=== PATIENT | female | born 1965 | race American Indian/Alaskan Native ===

== ENCOUNTER 2018-03-19 11:03 | Outpatient (CLI) | payer OTHER ==
--- NOTE | 2018-03-19 16:05 | Mammography Report ---
BILATERAL DIGITAL SCREENING MAMMOGRAM with CAD: CLINICAL: Routine screening. COMPARISON:None available. However, a prior mammogram was apparently done at [facility]. FINDINGS: The breasts are heterogeneously dense, which may obscure small masses. A left asymmetry on the CC view requires comparison with a prior mammogram or additional imaging.No architectural distortion or suspicious calcifications.The right breast is negative. IMPRESSION: Left asymmetry requiring further evaluation. BI-RADS CATEGORY: 0 -- Additional Evaluation Required RECOMMENDATION: Comparison with a previous mammogram. We will attempt to obtain a prior mammogram for comparison. If we do not obtain a prior mammogram within 30 days, a revised report will be issued recommending a recall for additional imaging. Please be advised that the patient should not schedule an appointment for return until adequate time (at least 2 weeks) has passed for us to obtain the prior mammogram. ACR BI-RADS MAMMOGRAPHIC CODES: 0 = Needs additional imaging evaluation; 1 = Negative; 2 = Benign; 3 = Probably benign; 4 = Suspicious; 5 = Malignant; 6 = Known biopsy-proven malignancy COMMENT: 1. Dense breast tissue, i.e., adenosis, fibrocystic changes, etc., may obscure an underlying neoplasm. 2. Approximately 10% of cancers are not detected with mammography. 3. A negative mammography report should not delay biopsy if a clinically suspicious mass is present. COMMENT: Patient follow-up letters are generated via our [employer] application.
== END 2018-03-19 11:04 | disposition home or self-care (01) ==
LOC: SPVWC 11:03
PROVIDERS: ATTEND Nurse Practitioner Gerontology
DX: Z12.31 Encounter for screening mammogram for malignant neoplasm of breast (principal)
CPT/HCPCS: 77067

== ENCOUNTER 2019-06-29 08:35 | Outpatient (CLI) | payer OTHER ==
--- NOTE | 2019-06-30 15:41 | Mammography Report ---
DIGITAL SCREENING MAMMOGRAM WITH CAD, 06/29/2019 INDICATION: Routine screening mammography. TECHNIQUE: Digital bilateral 2D mammography was obtained in the craniocaudal and mediolateral obliq ue projections. This examination was interpreted with the benefit of Computer-Aided Detection analysi s. COMPARISON: 03/19/2018 FINDINGS: Breast Density: The breasts are heterogeneously dense, which may obscure small masses. Bilateral mammographic asymmetries require additional imaging. No architectural distortion or suspici ous calcifications. IMPRESSION: Bilateral asymmetries requiring additional imaging. Recommend recall for bilateral spot c ompression views and bilateral breast ultrasound if needed. Follow up recommendation: Special View: Spot Category 0: Incomplete. Needs additional imaging evaluation and/or prior mammograms for comparison. A "normal" or negative report should not discourage follow up or biopsy of a clinically significant f inding. A written summary of these findings will be mailed to the patient. The patient will be entered into a mammography reporting system which will generate a reminder letter for the patient's next appointmen t at the appropriate interval. The [employer] recommends yearly mammograms starting at age 40 and continuing as l mohsen as a woman is in good health. Breast MRI is recommended for women with an approximate 20-25% or greater lifetime risk of breast cancer, including women with a strong family history of breast or ova fany cancer or who have been treated for Hodgkin's disease. Signer Name: Jaycob Luong MD Signed: 06/30/2019 3:37 PM Workstation Name: [id number]
== END 2019-06-29 08:36 | disposition home or self-care (01) ==
LOC: SPVWC 08:35
PROVIDERS: ATTEND Nurse Practitioner Gerontology
DX: Z12.31 Encounter for screening mammogram for malignant neoplasm of breast (principal)
CPT/HCPCS: 77067

== ENCOUNTER 2020-05-16 14:16 | Outpatient (CLI) | payer OTHER ==
--- NOTE | 2020-05-16 15:09 | Mammography Report ---
DIGITAL SCREENING MAMMOGRAM WITH CAD, 05/16/2020 INDICATION: Routine screening mammography. ABN MAMMO TECHNIQUE: Digital bilateral 2D mammography was obtained in the craniocaudal and mediolateral obliq ue projections. This examination was interpreted with the benefit of Computer-Aided Detection analysi s. COMPARISON: 06/29/2019, 03/19/2018 FINDINGS: Breast Density: The breasts are heterogeneously dense, which may obscure small masses. There is no evidence of dominant mass, suspicious calcifications or architectural distortion in eithe r breast. IMPRESSION: No evidence of malignancy Follow up recommendation: Routine yearly BI-RADS Category 1: Negative. A "normal" or negative report should not discourage follow up or biopsy of a clinically significant f inding. A written summary of these findings will be mailed to the patient. The patient will be entered into a mammography reporting system which will generate a reminder letter for the patient's next appointmen t at the appropriate interval. The [employer] recommends yearly mammograms starting at age 40 and continuing as l mohsen as a woman is in good health. Breast MRI is recommended for women with an approximate 20-25% or greater lifetime risk of breast cancer, including women with a strong family history of breast or ova fany cancer or who have been treated for Hodgkin's disease. Signer Name: Jose J Dwyer MD Signed: 05/16/2020 3:04 PM Workstation Name: [id number]
== END 2020-05-16 14:17 | disposition home or self-care (01) ==
LOC: MAMMO 14:16
PROVIDERS: ATTEND Advanced Practice Midwife
DX: N64.59 Other signs and symptoms in breast (principal)
CPT/HCPCS: 77066